=== PATIENT | male | born 1945 | race Caucasian/White ===

== ENCOUNTER → 2016-07-23 | Day surgery (SDC) | payer OTHER ==
--- NOTE | 2016-07-22 18:39 | MH ---
cc: ANDERSON GARCIA DATE OF ADMISSION 07/23/2016 ADMISSION DIAGNOSIS Herniated nucleus pulposus lumbar spine. HISTORY OF THE PRESENT ILLNESS This patient is a 70-year-old white male who has been physically active for many years. In August of 2015 he had a sudden onset of leg pain with weakness. He presented to the emergency room where he was given injections. He began treatment with Dr. Isac Pena who placed him on medications as well. The patient had noted increasing pain and he has fallen several times. studies show that he has evidence of a foraminal disc herniation to the left at L3-4. He saw me in consultation and I think he is felt to be a candidate for surgical treatment. PAST MEDICAL HISTORY See attached notes. SOCIAL HISTORY See attached notes. FAMILY HISTORY See attached notes. REVIEW OF SYSTEMS See attached notes. PHYSICAL EXAMINATION GENERAL: Average build white male appearing his stated age. 5 feet 7 inches. HEENT: Normocephalic, atraumatic. Pupils equal, round, reactive to light and accommodation. Extraocular motions intact. NECK: Supple. CHEST: Clear. HEART: Regular rate and rhythm. ABDOMEN: Soft, nontender, normoactive bowel sounds. MUSCULOSKELETAL: Thoracolumbar spine restricted range of motion, tenderness to the lumbar spine. Mild spasm. Pain with motion. There is a diminished left patellar reflex and there is evidence of left knee quadriceps function of 4/5. IMAGING Reviewed MRI scan lumbar spine 03/18/2016. [facility], shows evidence of a far lateral disk herniation L3-4 with significant foraminal compromise to the left side affecting the left L3 nerve root. This is considered to be a moderate to large disc herniation. This was seen on T1, T2 sagittal as well as T2 axial images. IMPRESSION 1. Herniated nucleus pulposus L3-4, left, far lateral/foraminal. 2. Left L3 radiculopathy. PLAN Far lateral exposure of left L3-4, resection herniated nucleus pulposus, use of dilation port and microscope. CONSENT The risks of surgery including infection, bleeding, loss of motion, continued pain, leakage of cerebrospinal fluid, neurologic or vascular injury, instability and need for further surgery. The patient understands these issues and wishes to press on with surgery as outlined above. Anderson MD SEA Monson/KK /5:51 PM /6:26 PM MTDSeverino
[~2016-07-23] VITALS: Ht 170.2 cm; Wt 87.2 kg
[~2016-07-23] MED LIST: ACETAMINOPHEN 1000 MG/100 ML VIAL IV ONE; AMLO5TAB2 PO; ASPI1TAB69 PO; BETAMETHASONE SOD PHOS/ACETATE SUSP 30 MG/5 ML VIAL OTHER ONE; BUPIVACAINE/EPINEPHRINE 0.25% PF 30 ML VIAL ONE; DEXAMETHASONE SOD PHOS 4 MG/ML VIAL ONE; FAMOTIDINE 20 MG/2 ML VIAL ONE; GELATIN 12 MM/7 MM FOAM ONE; GENTAMICIN SULFATE 80 MG/2 ML VIAL ONE; INSULIN HUMAN REGULAR 1,000 UNITS/10 ML VIAL SQ PRN; KETOROLAC TROMETHAMINE 30 MG/ML (IVP) VIAL IV PUSH ONE; LACTATED RINGER'S 1000 ML IV SCH; METOPROLOL TARTRATE 25 MG TAB PO PRN; MIDAZOLAM HCL 2 MG/2 ML VIAL ONE; MULT1TAB85 PO; NEOSTIGMINE 3 MG/3 ML SYR IV ONE; OMEG1200 PO; ONDANSETRON HCL 4 MG/2 ML VIAL IV PUSH ONE; OXYC1TAB63 PO; PHENYLEPH/NS 1000 MCG/10 ML SYR IV ONE; POVIDONE IODINE 7.5% SCRUB 118 ML BOTTLE TOP SCH; PRAV40TA2 PO; PROPOFOL 200 MG/20 ML AMP IV ONE; RESP: ALBUTEROL 2.5 MG/3 ML NEB (SCH) INH ONE; SODIUM CHLORID 0.9% 500 ML IV SCH; ceFAZolin 2 GM PREMIX 50 ML IV SCH; ePHEDrine/NS 25 MG/5 ML SYR IV ONE; fentaNYL CITRATE 250 MCG/5 ML AMP ONE
[2016-07-23 06:20] VITALS: BP 198/95; PULSE 100; RESP 18; TEMP 98; O2SAT 95
--- NOTE | 2016-07-23 09:57 | PD.OP ---
cc: Abel Chavarria MD Operative Report Date of Surgery: Jul 23, 2016 Preoperative Diagnosis: Herniated nucleus pulposus L3 4, left, far lateral/foraminal Postoperative Diagnosis: Same Procedure: Far lateral exposure left L3 4, resection herniated nucleus pulposis, foraminotomy Anesthesia: Gen. Surgeon: Abel Chavarria [employer](s): SEBASTIEN Jain Operation and Findings: EBL: 100 cc INDICATION: Patient is a 70-year-old male with significant left L3 nerve root pain and weakness. Studies shows evidence of a foraminal/far lateral disc to the left at the L3 4 level. Despite conservative care, the patient is painful and symptomatic. He presents for surgical treatment NOTE: Yary Jain PA-C was present for the entire surgical procedure as my agency sales management assistant. In my medical opinion her skill and care was necessary for the proper management of this patient. PROCEDURE: The patient was brought to the operating room and anesthetized in the supine position. The patient was rolled to a prone position on a Jett frame on a Obdulio table. All pressure points were protected in the back was scrubbed with alcohol followed by Hibiclens followed by ChloraPrep and draped sterilely. A timeout was done and antibiotics were given. AP and lateral radiographic images were used to identify the proper levels and perform skin markings. We started from the left side at the L3 4 level. A paramedian incision was made and an off-midline fascial incision was made. We placed a dilating probe down to the cephalad edge of the lower transverse process. This was opened allowing excellent exposure using a proper length retractor. The microscope was rolled into the field. Intraoperative radiographs used to confirm proper level and positioning. Under the microscope the outer portion of the facet joint was removed with a high-speed bur. Hemostasis was controlled. The intertransverse process ligament was taken down from the cephalad border of the caudad transverse process. The exiting nerve root was identified. The medial edge was protected carefully. We were able to work underneath the nerve root from below. There was a sequestered fragment of disc underneath the nerve root in a far lateral position. This disc was removed. We entered into the disc space removing additional disc fragments. We able to check all the way up to the cephalad pedicle. There was no nerve root compression. We went above the nerve root to ensure that there was adequate decompression. At the end of the case the exiting nerve root was without nerve root compression. No significant bleeding was encountered. The wound was irrigated copiously. A small piece of Gelfoam with Celestone was placed into the area of surgical dissection. Hemostasis was controlled. The deep fascia was approximated with interrupted 0 Vicryl suture subcutaneous suture with 2-0 Vicryl suture and skin with running intradermal 3-0 Vicryl followed by Dermabond. A field block with local anesthesia was utilized. A sterile dressing was applied. The sponge count and needle counts and instrument counts were all correct. The patient tolerated the procedure well as taken to the recovery room in satisfactory condition. FINDINGS: There was evidence of significant scarring along the edge of the L3 nerve root. There was dense amount of scar tissue adjacent to this region and the disc. The decompression was felt be very satisfactory. No complication was appreciated. Abel Chavarria MD Jul 23, 2016 09:57
[2016-07-23 11:42] VITALS: TEMP 97.4
[2016-07-23 12:15] VITALS: BP 131/87; PULSE 112; RESP 18; O2SAT 93
--- NOTE | 2016-07-23 17:09 | RADRPT ---
EXAM DATE/TIME: 07/23/2016 08:07 [facility] COMPARISON: No previous studies available for comparison. INDICATIONS : L3-4 Laminectomy. MEDICAL HISTORY : Hypertension. SURGICAL HISTORY : None. ENCOUNTER: Initial ACUITY: 1 day PAIN SCORE: Non-responsive. LOCATION: Lumbar spine. FINDINGS: A single lateral view of the lumbar spine was performed. There is normal alignment of the vertebral bodies without evidence of subluxation. Vertebral body height and disc space height is maintained. CONCLUSION: Intraoperative marker extending toward the L3-4 disc space assuming 5 non-rib bearing lumbar type mohini tebral bodies. Mehran Del Angel MD on July 23, 2016 at 17:07 Board Certified Radiologist. This report was verified electronically.
== END | disposition home or self-care (01) ==
LOC: HSDC 05:21
PROVIDERS: ATTEND Orthopaedic Surgery Orthopaedic Surgery of the Spine
DX: M51.16 Intervertebral disc disorders with radiculopathy, lumbar region (principal); I10 Essential (primary) hypertension
CPT/HCPCS: 00630; 63030; 72020; 76000; 86850; 86900; 86901; 94664; J0131; J0702; J1100; J1580; J1885; J2250; J2370; J2405; J2710; J3010; J7120; J7613